=== PATIENT | male | born 1945 | race Caucasian/White ===

== ENCOUNTER 2017-06-04 13:06 | Emergency (ER) | payer OTHER ==
[~2017-06-04] VITALS: Ht 177.8 cm; Wt 77.1 kg
--- NOTE | 2017-06-04 13:06 | NUR ---
[id number] CONTINUED IN ROOM 10- MD, RN'S, RT AT BEDSIDE
--- NOTE | 2017-06-04 13:06 | NUR ---
PATIENT BIBA TO BED 10
[2017-06-04 13:53] LABS: BASOPHILS # (AUTO) 0.4 K/uL (0.00-0.22); HEMATOCRIT 45.9 % (36-52); HEMOGLOBIN 14.9 g/dL (12.0-18.0); LYMPHOCYTES # (AUTO) 1.2 K/uL (2.0-11.5); MEAN CORPUSCULAR HEMOGLOBIN 29 pg (27-31); MEAN CORPUSCULAR HGB CONC 32 g/dL (33-37); MEAN CORPUSCULAR VOLUME 91 fL (80-94); MONOCYTES # (AUTO) 0.2 K/uL (0.8-1.0); NEUTROPHILS # (AUTO) 3.9 K/uL (1.8-7.7); PLATELET COUNT (AUTO) 165 K/uL (140-450); RED BLOOD CELL COUNT(AUTO) 5.07 MIL/uL (4.20-6.10); RED CELL DISTRIBUTION WIDTH 13.5 % (11.6-13.7); WHITE BLOOD COUNT (AUTO) 5.7 K/uL (4.8-10.8)
--- NOTE | 2017-06-04 13:58 | NUR ---
PT ARRIVED FULL ARREST 1305. CPR INITIATED. ACLS DRUGS ADMINISTERED. ENDED AT 1351.
[2017-06-04 14:20] LABS: ALBUMIN 3.1 g/dL (3.4-5.0); CARBON DIOXIDE 19.2 mmol/L (21-32); CREATININE 1.3 mg/dL (0.7-1.3); TOTAL BILIRUBIN 0.3 mg/dL (0.0-1.0)
[2017-06-04 14:36] LABS: ANION GAP 22.7 (8-16); POTASSIUM 3.9 mmol/L (3.5-5.1)
--- NOTE | 2017-06-04 14:45 | NUR ---
[facility] CASE #[id number] BEEN INFORMED. [facility] WILL CALL BACK TO KNOW IF [facility] WILL TAKE OVER
--- NOTE | 2017-06-04 14:45 | NUR ---
CALLED [facility] #[phone]
[2017-06-04 15:06] LABS: D-DIMER > 5000 ng/ml (0-400)
--- NOTE | 2017-06-04 15:07 | NUR ---
CARBONATOR WAS REACHED LARRY GIBSON SPOKE WITH EDWARD
--- NOTE | 2017-06-04 15:07 | NUR ---
[facility] HEADER UP CASE # [id number]
--- NOTE | 2017-06-04 15:30 | NUR ---
PATIENT'S ESCORTED TO CONFERENCE ROOM.
[2017-06-04 15:40] LABS: PROTHROMBIN TIME 11.7 secs (10.8-13.4)
--- NOTE | 2017-06-04 16:45 | NUR ---
PATIENT'S SON ESCORTED TO CONFERENCE ROOM.
--- NOTE | 2017-06-04 19:10 | NUR ---
FAMILY AT BEDSIDE
--- NOTE | 2017-06-04 19:20 | NUR ---
Patient to be transferred to [facility]/PROFESSOR OF NURSING OFFICE. ALL Patient belongings SENT WITH FAMILY-SONS/. Copy of nursing notes, lab reports, EKG, Physicians Orders and X-rays to be sent with patient. PROFESSOR OF NURSING CASE #[id number].
== END 2017-06-04 13:51 | disposition expired ==
LOC: MED 13:06 → EDBD 13:06 → MED 13:51
DX: I46.9 Cardiac arrest, cause unspecified (principal); E78.00 Pure hypercholesterolemia, unspecified
CPT/HCPCS: 36415; 80053; 83605; 84484; 85025; 85379; 85610; 85730; 86886; 86900; 86901; 87040; 92950; 99291